=== PATIENT | female | born 1995 | race Two or more races ===

== ENCOUNTER 2016-12-16 16:38 | Emergency (ER) | payer MEDICAID ==
[~2016-12-16] VITALS: Ht 172.7 cm; Wt 70.8 kg
[2016-12-16 16:56] VITALS: BP 148/106
[2016-12-16] MEDS ORDERED: ACETAMINOPHEN/CODEINE#3 (300/30mg) TAB PO ONE (17:30)
== END 2016-12-16 17:55 | disposition home or self-care (01) ==
LOC: ER 16:46
DX: S62.306A Unspecified fracture of fifth metacarpal bone, right hand, initial encounter for closed fracture (principal); W22.01XA Walked into wall, initial encounter; Y93.89 Activity, other specified; Y99.8 Other external cause status; Y92.89 Other specified places as the place of occurrence of the external cause
CPT/HCPCS: 29125; 73130